=== PATIENT | male | born 1935 | race Caucasian/White ===

== ENCOUNTER 2019-05-29 14:33 | Emergency (ER) | payer MEDICARE, OTHER ==
[2019-05-29 15:13] VITALS: BP 142/78
--- NOTE | 2019-05-29 16:01 | UC ---
Respiratory Complaint HPI - HPI Summary HPI Summary: 84-year-old male who has had cold symptoms for approximately 3 days with a productive cough of yellowish sputum today. He denies any fever or chills. He is a nonsmoker. - History of Current Complaint Chief Complaint: UCGeneralIllness Stated Complaint: COUGH,CONGESTION Time Seen by Provider: 05/29/19 15:58 Hx Obtained From: Patient Onset/Duration: Gradual Onset Timing: Intermittent Episodes Severity Initially: Mild Severity Currently: Mild Pain Intensity: 0 Character: Cough: Productive - Productive cough of yellow sputum. Aggravating Factors: Deep Breaths Alleviating Factors: Nothing Associated Signs And Symptoms: Positive: URI, Nasal Congestion - Allergies/Home Medications Allergies/Adverse Reactions: Allergies Allergy/AdvReac Type Severity Reaction Status Date / Time No Known Allergies Allergy Verified 05/29/19 15:13 Home Medications: Home Medications Allopurinol TAB* [Zyloprim 300 MG TAB*] 300 mg PO DAILY 05/29/19 [History Confirmed 05/29/19] Aspirin 81 mg CHEW TAB* [Aspirin Low Dose TAB*] 81 mg PO DAILY 05/29/19 [ History Confirmed 05/29/19] Cyanocobalamin TAB* [Vitamin B12 TAB*] 1,000 mcg PO DAILY 05/29/19 [History Confirmed 05/29/19] LORazepam TAB(*) [Ativan 0.5 MG TAB (*)] 0.5 mg PO QID PRN 05/29/19 [History Confirmed 05/29/19] Levothyroxine TAB* [Synthroid TAB*] 50 mcg PO DAILY 05/29/19 [History Confirmed 05/29/19] Losartan/Hydrochlorothiazide [Losartan Potassium/Hydroc 50-12.5 mg] 1 tab PO DAILY 05/29/19 [History Confirmed 05/29/19] Multivit-Min/FA/Lycopen/Lutein [Centrum Silver Men Tablet] 1 each PO DAILY 05/29 [History Confirmed 05/29/19] Omeprazole 20 mg PO DAILY 05/29/19 [History Confirmed 05/29/19] PARoxetine HCL TAB* [Paxil TAB*] 40 mg PO DAILY 05/29/19 [History Confirmed ] Pravastatin Sodium [Pravachol] 80 mg PO DAILY 05/29/19 [History Confirmed ] Tamsulosin CAP* [Flomax CAP*] 0.4 mg PO BID 05/29/19 [History Confirmed 05/29/19 ] PMH/Surg Hx/FS Hx/Imm Hx - Additional Past Medical History Additional PMH: History of gout Previously Healthy: Yes Endocrine History: Thyroid Disease Cardiovascular History: Hypertension GI/ History: Gastroesophageal Reflux Psychological History: Depression Cancer History: Other - 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 Negative: Shortness Of Breath Cardiovascular: Negative: Palpitations, Chest Pain Is Patient Immunocompromised?: No Physical Exam Triage Information Reviewed: Yes Appearance: Well-Appearing, No Pain Distress, Well-Nourished Vital Signs: Initial Vital Signs Temp 99.1 F 05/29/19 15:06 Pulse 90 05/29/19 15:06 Resp 18 05/29/19 15:06 BP 142/78 05/29/19 15:06 Pulse Ox 96 05/29/19 15:06 Vital Signs Reviewed: Yes Eyes: Positive: Conjunctiva Clear ENT: Positive: Pharynx normal, Nasal congestion, Nasal drainage - Clear nasal coryza, TMs normal, Uvula midline Neck: Positive: Supple, Nontender, No Lymphadenopathy Respiratory: Positive: No respiratory distress, No accessory muscle use, Rhonchi , Wheezing - Scattered rhonchi and wheezing with forced expiration. Cardiovascular: Positive: RRR, No Murmur, Pulses Normal, Brisk Capillary Refill Musculoskeletal Exam: Normal Neurological Exam: Normal Psychological Exam: Normal Skin Exam: Normal Respiratory Course/Dx - Course Course Of Treatment: CXR: FINDINGS: The heart is within normal limits in size. Mediastinal and hilar contours appear within normal limits. The lungs are underinflated and clear. No pleural effusion is seen. There is flattening of the diaphragms consistent with chronic obstructive pulmonary disease. IMPRESSION: FINDINGS CONSISTENT WITH COPD , NO EVIDENCE FOR ACUTE DISEASE. At this point in time I feel this is a viral illness and I'm going to put the patient on 5 days of prednisone 40 mg daily with a definite check up with his primary care provider on Friday. The patient is awake and alert and stable. He does not appear ill. A reassessment of his lungs following the DuoNeb treatment: they are completely clear throughout all lung uribe. He felt much better after the treatment. He continues to have a loose cough. The patient and family are agreeable to no antibiotic at this point in time however I do want him to have that definite follow-up with his primary care provider on Friday. If he has any worsening symptoms, shortness breath, chest pain, fever or chills he's to go to the emergency room for further treatment. - Differential Dx/Diagnosis Provider Diagnosis: Bronchitis Discharge ED - Sign-Out/Discharge Documenting (check all that apply): Patient Departure All imaging exams completed and their final reports reviewed: Yes - Discharge Plan Condition: Good Disposition: HOME Prescriptions: predniSONE [Prednisone 20 MG TAB] 40 mg PO DAILY 5 Days #10 tablet Patient Education Materials: Acute Bronchitis (ED) Referrals: Wei Vogel DO [Primary Care Provider] - Additional Instructions: Take the prednisone with food, definite follow-up with your primary care provider on Friday for a recheck. Go to the emergency room if you develop any difficulty breathing, worsening symptoms, fever or chills, chest pain. - Billing Disposition and Condition Condition: GOOD Disposition: Home - Attestation Statements Provider Attestation: Per institutional requirements, I have reviewed the chart, however, I was not consulted specifically or made aware of this patient by the midlevel provider. I did not personally evaluate, interact with , or disposition this patient.
[2019-05-29] MEDS ORDERED: Albuterol/Ipratropium NEB.SOL* Albuterol 2.5 MG/Ipratropium 0.5 MG 3 ML INH ONE (16:02)
== END 2019-05-29 16:52 | disposition home or self-care (01) ==
LOC: UCCORT 14:33
DX: J40 Bronchitis, not specified as acute or chronic (principal); M10.9 Gout, unspecified; E07.9 Disorder of thyroid, unspecified; I10 Essential (primary) hypertension; K21.9 Gastro-esophageal reflux disease without esophagitis; F32.9 Major depressive disorder, single episode, unspecified; Z79.82 Long term (current) use of aspirin; Z87.891 Personal history of nicotine dependence
CPT/HCPCS: 71046; 99202; A9270-GY; G0463